=== PATIENT | female | born 1965 | race Caucasian/White ===

== ENCOUNTER 2017-03-08 18:12 | Emergency (ER) | payer OTHER ==
[2017-03-08 18:22] VITALS: BP 146/88
--- NOTE | 2017-03-08 18:49 | ED ---
Back Pain - HPI Summary HPI Summary: 52 YO F WITH C/O LOW BACK PAIN. STARTED 1-2 WEEKS AGO INTERMITTENT. TODAY SNEEZED AND HER BACK WENT INTO SPASM. PAIN WORSE RT PARASPINOUS LUMBAR REGION. NO WEAKNESS/NUMNESS/DIFFICULTY CONTROLLING BOWEL/BLADDER. - History of Current Complaint Chief Complaint: UCBackPain Stated Complaint: muscle spasms in the back Time Seen by Provider: 03/08/17 18:40 Hx Obtained From: Patient Hx Last Menstrual Period: 02/27/17 Onset/Duration: Sudden Onset, Lasting Hours, Still Present Onset/Duration: Started Hours Ago Timing: Constant Back Pain Location: Is Discrete @ - RT LUMBAR PARASPINOUS Severity Initially: Severe Severity Currently: Moderate Character: Spasmodic Aggravating Symptom(s): Movement, Lifting, Bending, Walking, Cough Alleviating Symptom(s): Rest, Position Associated Signs And Symptoms: Negative: Weakness, Numbness, Tingling, Bladder Incontinence, Bowel Incontinence - Allergies/Home Medications Allergies/Adverse Reactions: Allergies Allergy/AdvReac Type Severity Reaction Status Date / Time No Known Allergies Allergy Verified 03/08/17 18:22 PMH/Surg Hx/FS Hx/Imm Hx Previously Healthy: Yes Endocrine/Hematology History: Reports: Hx Thyroid Disease Denies: Hx Diabetes Cardiovascular History: Denies: Hx Hypertension, Hx Pacemaker/ICD History: Denies: Hx Renal Disease Musculoskeletal History: Denies: Hx Rheumatoid Arthritis, Hx Osteoporosis Sensory History: Denies: Hx Hearing Aid Psychiatric History: Denies: Hx Panic Disorder - Surgical History Surgery Procedure, Year, and Place: shoulder left - frozen shoulder REPAIR Infectious Disease History: No Infectious Disease History: Denies: Hx Clostridium Difficile, Hx Hepatitis, Hx Human Immunodeficiency Virus (HIV), Hx of Known/Suspected MRSA, Hx Shingles, Hx Tuberculosis, History Other Infectious Disease, Traveled Outside the [place] in Last 30 Days - Social History Alcohol Use: Occasionally Substance Use Type: Reports: None Smoking Status (MU): Never Smoked Tobacco Review of Systems Constitutional: Negative Eyes: Negative ENT: Negative Cardiovascular: Negative Respiratory: Negative Gastrointestinal: Negative Genitourinary: Negative Positive: Other - LUMBAR PAIN Skin: Negative Neurological: Negative Psychological: Normal All Other Systems Reviewed And Are Negative: Yes Physical Exam Triage Information Reviewed: Yes Vital Signs On Initial Exam: Initial Vitals Temp Pulse Resp BP Pulse Ox 99 F 68 16 146/88 100 03/08/17 18:16 03/08/17 18:16 03/08/17 18:16 03/08/17 18:16 03/08/17 18:16 Vital Signs Reviewed: Yes Appearance: Positive: Well-Appearing - MILD PAIN DISTRESS Skin: Positive: Warm, Skin Color Reflects Adequate Perfusion Head/Face: Positive: Normal Head/Face Inspection Eyes: Positive: Normal, EOMI, MACARENA Neck: Positive: Supple Musculoskeletal: Positive: Other - TENDER TO PALPATION RT PARASPINOUS LUMBAR Neurological: Positive: Normal, Sensory/Motor Intact, Alert, Oriented to Person Place, Time, Normal Gait Psychiatric: Positive: Normal AVPU Assessment: Alert Diagnostics - Vital Signs Vital Signs Temp Pulse Resp BP Pulse Ox 03/08/17 18:16 99 F 68 16 146/88 100 - Laboratory Lab Statement: Any lab studies that have been ordered have been reviewed, and results considered in the medical decision making process. Back Pain Course/Dx - Diagnoses Provider Diagnoses: Low back strain Discharge - Discharge Plan Condition: Stable Disposition: HOME Prescriptions: Cyclobenzaprine TAB* [Flexeril 10 MG TAB*] 10 mg PO TID PRN #15 tab MDD 3 PRN Reason: Pain Patient Education Materials: Acute Low Back Pain (ED), Hypertension (ED) Referrals: Lindsay Sesay MD [Primary Care Provider] - Additional Instructions: FOLLOW UP WITH YOUR DOCTOR FOR YOUR BACK PAIN IN 1-2 WEEKS FOR YOU HYPERTENSION. GET RECHECKED FOR ANY WORSENING OF YOUR CONDITION; PAIN, WEAKNESS, NUMBNESS, DIFFICULTY CONTROLLING BOWEL OR BLADDER OR QUESTIONS OR CONCERNS.
== END 2017-03-08 18:53 | disposition home or self-care (01) ==
LOC: UCEAST 18:12
DX: S39.012A Strain of muscle, fascia and tendon of lower back, initial encounter (principal); X58.XXXA Exposure to other specified factors, initial encounter; Y92.9 Unspecified place or not applicable
CPT/HCPCS: 99212; G0463

== ENCOUNTER 2017-04-15 18:02 | Emergency (ER) | payer OTHER ==
[2017-04-15 18:11] VITALS: BP 118/74
--- NOTE | 2017-04-15 18:56 | UC ---
Knee Pain HPI - HPI Summary HPI Summary: states she was skiing in [place] when she fell on icy terrain and felt a pop in her right knee after which she could not bear weight. Any movements of knee cause pain but while sitting she does not have any pain. - History of Current Complaint Chief Complaint: UCLowerExtremity Stated Complaint: KNEE INJURY Time Seen by Provider: 04/15/17 18:15 Hx Obtained From: Patient Hx Last Menstrual Period: one week ago ?: No Onset/Duration: Sudden Onset, Lasting Hours Severity Initially: Moderate Severity Currently: Moderate Location Of Injury: right knee Pain Intensity: 0 Character: Sharp, Aching Aggravating Factor(s): Movement, Weight Bearing Alleviating Factor(s): Rest, Position Associated Signs And Symptoms: Positive: Negative Able to Bear Weight: No - Allergies/Home Medications Allergies/Adverse Reactions: Allergies Allergy/AdvReac Type Severity Reaction Status Date / Time No Known Allergies Allergy Verified 04/15/17 18:11 PMH/Surg Hx/FS Hx/Imm Hx - Surgical History Surgical History: Yes Surgery Procedure, Year, and Place: shoulder left - frozen shoulder REPAIR - Social History Alcohol Use: Occasionally Substance Use Type: None Smoking Status (MU): Never Smoked Tobacco Review of Systems All Other Systems Reviewed And Are Negative: Yes Physical Exam Triage Information Reviewed: Yes Appearance: Well-Appearing, Well-Nourished Vital Signs: Initial Vital Signs Temp 98.1 F 04/15/17 18:08 Pulse 97 04/15/17 18:08 Resp 12 04/15/17 18:08 BP 118/74 04/15/17 18:08 Pulse Ox 97 04/15/17 18:08 Vital Signs Reviewed: Yes Eye Exam: Normal Eyes: Positive: Conjunctiva Clear Respiratory: Positive: Chest non-tender Cardiovascular: Positive: Pulses Normal, Brisk Capillary Refill Musculoskeletal Exam: Other - No soft tissue swelling on right knee, patella mobile, no subluxation, no knee effusion. ADT /PDT negative, valgus positive, varus negative. No distal edema or bruising, pedal pulses present Musculoskeletal: Positive: No Edema Procedures - Splinting Hand-Made Type: fiberglass Splint: posterior walking Pre-Proc Neuro Vasc Exam: normal Post-Proc Neuro Vasc Exam: normal Knee Pain Course/Dx - Course Course Of Treatment: f/u with orthopedic surgery next week. Analgesics if needed - Differential Dx/Diagnosis Provider Diagnoses: right knee sprain Discharge - Discharge Plan Condition: Stable Disposition: HOME Prescriptions: Ibuprofen TAB* [Motrin TAB* 400 MG] 400 mg PO Q6H PRN #60 tab PRN Reason: Pain Referrals: Lindsay Sesay MD [Primary Care Provider] - Lan Cody MD [Medical Doctor] -
--- NOTE | 2017-04-15 18:59 | RAD ---
INDICATION: Right knee pain after skiing injury COMPARISON: None TECHNIQUE: 4 view radiograph of the right knee. FINDINGS: The visualized bones are well-corticated and properly aligned. The joint spaces are properly maintained. There is no radiographic evidence of joint effusion. There is no acute fracture, dislocation or other focal bony abnormality. IMPRESSION: Normal knee radiograph as described above. If the patient's symptoms persist, follow-up imaging is recommended.
== END 2017-04-15 19:34 | disposition home or self-care (01) ==
LOC: UCEAST 18:02
DX: S83.91XA Sprain of unspecified site of right knee, initial encounter (principal); V00.321A Fall from snow-skis, initial encounter; Y93.23 Activity, snow (alpine) (downhill) skiing, snowboarding, sledding, tobogganing and snow tubing; Y92.89 Other specified places as the place of occurrence of the external cause
CPT/HCPCS: 99212; G0463

== ENCOUNTER 2017-05-17 06:44 | Day surgery (SDC) | payer OTHER ==
[~2017-05-17 06:44] MED LIST: Buffered Lidocaine 0.9% SYRIN* 5 ML/SYR SYRINGE INTRADERM ONE
[2017-05-17] MEDS ORDERED: ceFAZolin 2 GM in 100 MLS NS (*) BAG IVPB ONE (06:46)
[2017-05-17] MEDS ORDERED: Buffered Lidocaine 0.9% SYRIN* 5 ML/SYR SYRINGE ONE (06:46)
[2017-05-17] MEDS ORDERED: Lidocaine 1% MPF wEPI 200,000* 30 ML SDV ONE (06:58)
[2017-05-17] MEDS ORDERED: Bupivacaine 0.5% SDV PF* 10-30ML VIAL ONE (06:59)
[2017-05-17] MEDS ORDERED: Bupivacaine 0.25% SDV* 30 ML ONE (06:59)
[2017-05-17] MEDS ORDERED: fentaNYL* 50 MCG/ML 2 ML VIAL (100 MCG VIAL) ONE ×2 (07:27→09:41)
[2017-05-17] MEDS ORDERED: Scopolamine 1.5 mg* PATCH ONE (07:27)
[2017-05-17] MEDS ORDERED: Midazolam* 1 MG/ML 2 ML VIAL (2 MG) ONE (07:27)
[2017-05-17] MEDS ORDERED: Ondansetron INJ* 2 MG/ML VIAL ONE (07:47)
[2017-05-17] MEDS ORDERED: Dexamethasone IV* 4 MG/ML 1 ML (4 MG) ONE (07:47)
[2017-05-17] MEDS ORDERED: Propofol* 10 MG/ML 20 ML BTL IV PUSH ONE (07:47)
[2017-05-17] MEDS ORDERED: Lidocaine 2% PF * 5 ML VIAL ONE (07:47)
[2017-05-17] MEDS ORDERED: EPHEDrine (Pressors)* 50 MG/ML VIAL ONE (08:14)
[2017-05-17] MEDS ORDERED: oxyCODONE TAB* 5 MG TAB PO PRN (08:21)
[2017-05-17] MEDS ORDERED: Naloxone* 0.4 MG/ML 1 ML VIAL IV PRN (08:21)
[2017-05-17] MEDS ORDERED: Acetaminophen TAB* 325 MG PO PRN (08:21)
[2017-05-17] MEDS ORDERED: Metoclopramide IV* 5 MG/ML 2 ML VIAL IV PRN (08:21)
[2017-05-17] MEDS ORDERED: PROCHLORPERAZINE INJ 5 MG/ML 2 ML VIAL IV PRN (08:21)
[2017-05-17] MEDS ORDERED: Ketorolac INJ* 30 MG/ML 1 ML VIAL ONE (09:12)
[2017-05-17] MEDS: fentaNYL* 50 MCG/ML 2 ML VIAL (100 MCG VIAL) IV PRN ×4 (09:42→10:29)
[2017-05-17] MEDS ORDERED: HYDROmorphone INJ* 2 MG/ML CARPUJECT SYRINGE ONE (10:05)
[2017-05-17] MEDS: HYDROmorphone INJ* 1 MG/ML CARPUJECT SYRINGE IV PRN ×3 (10:07→10:28)
[2017-05-17 11:46] VITALS: BP 122/87
--- NOTE | 2017-05-18 12:27 | OP ---
CC: PCP, Lindsay Sesay MD * DATE OF OPERATION: 05/17/17 - [facility] DATE OF : 63 SURGEON: Rebeca Paz MD PARTS SALESMAN: FLETCHER Crespo. An patient support assistant was needed for the entirety of the case to help with positioning, retraction, and was utilized throughout all portions of the case. ANESTHESIOLOGIST: Dr. Velásquez. ANESTHESIA: General. PRE-OP DIAGNOSIS: Right ACL rupture with medial meniscus tear. 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 OPERATIVE PROCEDURE: Right knee arthroscopy with: 1. ACL reconstruction with quad autograft. 2. Partial lateral meniscectomy. 3. Removal of loose body about 5 mm. 4. Chondroplasty of the medial femoral condyle. TOURNIQUET TIME: 21 minutes, 250 mmHg. IMPLANTS USED: One 7 x 20 SoftSilk screw and one 10 x 25 BioComposite screw. COMPLICATIONS: None. ESTIMATED BLOOD LOSS: Minimal. INDICATIONS: Meghana Melendrez is a 52-year-old female who sustained injury to her right knee while skiing on 04/15/17, she hit the heavy snow. We talked about treatment with diagnosis of ACL tear with a medial meniscus tear. Risks and benefits of surgery were discussed at length. She tried the short course preoperative rehab and elected to proceed with surgical treatment. Risks were discussed with the patient including but are not limited to bleeding, infection , damage to nerves, vessels, or surrounding structures, wound nonhealing, persistent pain, need for further surgery, scarring, stiffness, incomplete relief of symptoms and risk of anesthesia. DESCRIPTION OF PROCEDURE: The patient was greeted in the preoperative area by the attending surgeon. Correct extremity was marked and consent was confirmed. The patient was brought back to the operating suite where she was placed in supine position on the operating table. She then underwent general anesthesia with LMA intubation after which she was appropriately positioned on the bed and lateral post was positioned and joya bag was placed at the end of the bed keeping the knee at 90 degrees. The right knee was prepped and draped in usual sterile fashion. A sterile tourniquet was placed. After appropriate surgical pause indicating site, side, procedure, and administration of antibiotics, the knee was intraarticularly injected with 1% lidocaine with epi. The limb was exsanguinated using an Esmarch. The tourniquet was inflated to 250 mmHg. A midline incision of the distal quad was then made sharply with 15 blade. Soft tissue was carefully dissected and exposed the quadriceps at the center, 9 mm were harvested in full-thickness graft through a length of about a 7 cm soft tissue and then a 23 mm bone block distally. The bone block was harvested with the sagittal saw for a size 9 x 23 mm bone block. The soft tissues were carefully harvested, it was then prepared on the back table by the patient support assistant. Meanwhile, the attending closed the quadriceps wound with 0-Vicryl in interrupted fashion. The tourniquet was then deflated for a total time of 21 minutes. Knee was then placed in 90 degrees. The lateral portal was made using an 11 blade. Scope was brought to the joint, joint was examined. There was abundant fat pad present. The anterior medial portal was made with an 18-gauge for needle localization. The shaver was used to debride back the fat pad and ligamentum. The ACL was found to have some intact fibers, but the vast majority of the anterior lateral bundle was torn. As scope was placed, the knee was placed in full extension and there was a small amount of chondral changes on the patellofemoral joint, but the trochlea was intact, medial and lateral gutters were intact. The scope was brought into the medial compartment. The medial meniscus was probed and found to be intact. The medial plateau had grade 0 to 1 changes. The medial femoral condyle had grade 0 to 1 changes except for a small dime-sized lesion in the weightbearing surface with unstable flap. This is an OCD lesion. A small chondroplasty was done of the unstable flaps, but the majority of the lesion was left alone. Knee was then placed in a [id number] position and the plateau had some grade 1 to 2 changes. The lateral meniscus had some mild fraying. There was evidence of a previous tear in the body of the meniscus that was healing, so it was left alone. There was evidence of a loose cartilaginous piece around 5 mm under the meniscus that was initially from the medial femoral condyle OCD lesion. This was then carefully removed. The lateral femoral condyle had grade 1 change. Knee was then brought back to 90 degrees and the ACL was then debrided back using amanda and biters. Once this was done, the lateral footprint was prepared in usual fashion with electro-cautery device and the shaver. A starting awl was then used to cookie a company pilot hole for later placement of the femoral tunnel. The scope was changed to the anterior medial portal to make sure that the position was appropriate. This was used as a reference point. The attention was directed to the tibial footprint. The tip-to- tip guide was set to 50 degrees and a separate incision was made anteromedially on the long tibia bisecting the space between the tibial tubercle and the posterior medial border of the tibia. Incision was made in line with that and the soft tissues were carefully dissected. The tip-to-tip guide was placed again. The guidewire was placed in the center of the footprint. Once this was done, this was overdrilled with a size 10 mm full bore reamer. The bone graft was saved for later bone grafting at the patellar defect. The tunnel was then rasped and shaved to allow for easier graft passage. A carrot placed to prevent fluid egress. Attention was directed to the femoral tunnels with the Hernandez and Nephew straight guide was placed in the center of the femoral footprint. The knee was hyperflexed and the Beath pin was placed in the center of the femoral footprint. The Beath pin was advanced through the lateral condyle and IT band and skin. This was then checked by the scope changing to the anterior medial portal to assess positioning. There was appropriate amount of back wall. A size 9 mm low profile reamer was then used to drill a depth of about 22 mm. The tunnel was found to have an appropriate back wall. This was then notched. The graft was appropriately trimmed to be well seated in the graft tunnel. The #2 Ethibond suture was then placed through the islet end of the Beath pin and passed out through the lateral wound. The sutures were then passed in anterograde fashion to the tibial tunnel. At this point, the grafts that was previously placed on tension by the patient support assistant was then brought back to the operating table. The graft was then passed under direct and arthroscopic visualization to be well seated into femoral tunnel. A Nitinol wire was then used as a guide to help secure the graft with a 7 x 20 SoftSilk screw, this was seated with excellent purchase. The knee was then taken to full extension and found to not impinge anteriorly. The knee was then cycled approximately 20 times to remove any creep from the graft. After it was cycled, the scope was brought back to the joint to show that the graft had not moved at all. The knee was then placed in about 10 to 20 degrees of flexion with tension in the tibial sutures and posterior drawer. A size 10 x 25 mm BioComposite screw was then used to secure the tibial portion of the graft. This was secured with excellent purchase. The knee was taken through range of motion. The Marilu was found to be stable. The scope was brought back to the joint. The joint was examined. The ACL was in good position and no evidence of shifting. The wounds were copiously irrigated with sterile saline. Final images were obtained. The bone graft was placed in the patellar defect and oversewn with 0 Vicryl. The quadriceps wound was closed in layers with 2-0 Vicryl and chris, the portals with 3-0 nylon, the tibial wound with 2-0 Vicryl and 3-0 Monocryl. Sterile dressings were applied. Incisions and the knee intra-articularly were injected with 0.25% Marcaine plain. Sterile dressings were applied. Cryo/Cuff as well as a hinged knee brace with range of motion 0 to 120 was then placed. She was awoken from anesthesia and transferred to PACU in stable condition. POSTOPERATIVE PLAN: She will be weightbearing as tolerated. She will keep her hinged knee brace locked in extension for 4 weeks while ambulating. She will be discharged on pain medication and antibiotics. I will see the patient back in 6 to 8 days. She will start physical therapy within a week. DVT prophylaxis was considered, but deferred due to no previous personal or family history. [id number]/[facility] [place] #: [id number] DEYSI
== END 2017-05-17 11:47 | disposition home or self-care (01) ==
LOC: OR 06:44
PROVIDERS: ATTEND Orthopaedic Surgery
DX: S83.511A Sprain of anterior cruciate ligament of right knee, initial encounter (principal); S83.281A Other tear of lateral meniscus, current injury, right knee, initial encounter; V00.328A Other snow-ski accident, initial encounter; Y93.23 Activity, snow (alpine) (downhill) skiing, snowboarding, sledding, tobogganing and snow tubing; Y92.838 Other recreation area as the place of occurrence of the external cause; M93.961 Osteochondropathy, unspecified, right lower leg; E03.9 Hypothyroidism, unspecified
CPT/HCPCS: 81025; A9270-GY; C1713; J1100; J1170; J1885; J2001; J2250; J2405; J2704; J3010

== ENCOUNTER 2018-04-14 11:52 | Emergency (ER) | payer OTHER ==
[2018-04-14 13:39] VITALS: BP 129/82
--- NOTE | 2018-04-14 13:46 | UC ---
Throat Pain/Nasal Naeem HPI - HPI Summary HPI Summary: 53 yo female presents with headache, dry cough, elevated temperature, and body aches since this morning. She took mucinex with mild relief. 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 Denies sinus symptoms, sore throat, SOB, abdominal pain, n/v. - History of Current Complaint Chief Complaint: UCRespiratory Stated Complaint: SINUS ISSUE Time Seen by Provider: 04/14/18 13:45 Hx Obtained From: Patient Hx Last Menstrual Period: current Onset/Duration: Sudden Onset Severity: Mild Pain Intensity: 4 Pain Scale Used: 0-10 Numeric - Allergies/Home Medications Allergies/Adverse Reactions: Allergies Allergy/AdvReac Type Severity Reaction Status Date / Time No Known Allergies Allergy Verified 04/14/18 13:39 Home Medications: Home Medications Phenylephrine/Dm/Acetaminop/GG [Mucinex Fast-Max Cold Flu] 1 tab PO DAILY PRN [History Confirmed 04/14/18] PMH/Surg Hx/FS Hx/Imm Hx Endocrine History: Hypothyroidism - Surgical History Surgical History: Yes Surgery Procedure, Year, and Place: shoulder left - frozen shoulder REPAIR. R knee ACL repair - Family History Known Family History: Positive: Non-Contributory - Social History Occupation: Employed Full-time Lives: With Family Alcohol Use: Rare Substance Use Type: None Smoking Status (MU): Never Smoked Tobacco Review of Systems All Other Systems Reviewed And Are Negative: Yes Constitutional: Positive: Fever, Fatigue, Other - Body aches Skin: Positive: Negative Eyes: Positive: Negative ENT: Positive: Negative Respiratory: Positive: Cough Cardiovascular: Positive: Negative Gastrointestinal: Positive: Negative Neurovascular: Positive: Negative Neurological: Positive: Negative Psychological: Positive: Negative Physical Exam - Summary Physical Exam Summary: GENERAL: NAD. WDWN. No pain distress. SKIN: No rashes, sores, lesions, or open wounds. HEENT: Head: AT/NC Eyes: EOM intact. Conjunctiva clear without inflammation or discharge. Ears: Hearing grossly normal. TMs intact, no bulging, erythema, or edema. Nose: Nasal mucosa pink and moist. NTTP maxillary and frontal sinus. Throat: Posterior oropharynx without exudates, erythema, or tonsillar enlargement. Uvula midline. NECK: Supple. Nontender. No lymphadenopathy. CHEST: CTAB. No r/r/w. No accessory muscle use. Breathing comfortably and in no distress. CV: RRR. Without m/r/g. Pulses intact. Cap refill <2seconds NEURO: Alert. PSYCH: Age appropriate behavior. Triage Information Reviewed: Yes Vital Signs: Initial Vital Signs Temp 100.2 F 04/14/18 13:35 Pulse 102 04/14/18 13:35 Resp 16 04/14/18 13:35 BP 129/82 04/14/18 13:35 Pulse Ox 96 04/14/18 13:35 Laboratory Tests 04/14/18 13:55 Influenza A (Rapid) Positive A Vital Signs Reviewed: Yes Throat Pain/Nasal Course/Dx - Course Course Of Treatment: POC flu positive. Rx for tamiflu - Differential Dx/Diagnosis Provider Diagnosis: Influenza Discharge - Sign-Out/Discharge Documenting (check all that apply): Patient Departure All imaging exams completed and their final reports reviewed: No Studies - Discharge Plan Condition: Stable Disposition: HOME Prescriptions: Oseltamivir CAP* [Tamiflu CAP*] 75 mg PO BID #10 cap Patient Education Materials: Influenza (DC) Referrals: Lindsay Sesay MD [Primary Care Provider] - Additional Instructions: If you develop a fever, shortness of breath, chest pain, new or worsening symptoms - please call your PCP or go to the ED. - Billing Disposition and Condition Condition: STABLE Disposition: Home
[2018-04-14 14:01] LABS: Influenza A Molecular POSITIVE (Negative)
== END 2018-04-14 14:14 | disposition home or self-care (01) ==
LOC: UCEAST 11:52
DX: J11.1 Influenza due to unidentified influenza virus with other respiratory manifestations (principal)
CPT/HCPCS: 99212; G0463